=== PATIENT | male | born 1965 | race African-American/Black ===

== ENCOUNTER 2021-01-12 15:05 | Inpatient (IN) | payer OTHER ==
[~2021-01-12] VITALS: Ht 188 cm; Wt 92.5 kg
[2021-01-12 15:39] LABS: BASOPHILS % 0.5 % (0.0-2.0); EOSINOPHILS % 0.3 % (0.0-5.0); HEMATOCRIT. 39.6 % (42.0-52.0); HEMOGLOBIN. 13.3 g/dL (14.0-18.0); LYMPHOCYTES % 9.3 % (20.0-50.0); MEAN CORPUSCULAR HEMOGLOBIN 30.5 pg (28.0-32.0); MEAN CORPUSCULAR VOLUME 90.7 fL (80.0-94.0); MEAN PLATELET VOLUME 7.8 fl (7.4-10.4); MONOCYTES % 7.8 % (2.0-8.0); NEUTROPHILS % 82.1 % (40.0-76.0); PLATELET 382 x1000/uL (130-400); RED BLOOD CELL COUNT 4.36 mill/uL (4.7-6.1)
[2021-01-12 15:46] LABS: CHLORIDE 105 mEq/L (98-107)
[2021-01-12] MEDS ORDERED: AZITHROMYCIN 500 MG TABLET PO ONE (16:30)
[2021-01-12] MEDS ORDERED: SODIUM CHLORIDE 0.9% 1000ML BAG (SEPSIS BOLUS) IV ONE (17:45)
[2021-01-12] MEDS ORDERED: AZITHROMYCIN 500 MG TABLET PO NR (17:57)
[2021-01-12 18:16] LABS: BETA HYDROXYBUTYRATE 0.1 mMol/L (0.0-0.3)
[2021-01-12 18:59] LABS: CLARITY URINE TURBID (CLEAR); COLOR URINE DARK YELLOW (YELLOW); KETONES URINE TRACE (NEGATIVE); LEUKOCYTE ESTERASE URINE 1+ (NEGATIVE); NITRITE URINE NEGATIVE (NEGATIVE); OCCULT BLOOD URINE 2+ (NEGATIVE); PROTEIN URINE 2+ (NEGATIVE); SPECIFIC GRAVITY URINE 1.023 (1.005-1.030)
[2021-01-12] MEDS ORDERED: ONDANSETRON HCL 4MG/2ML INJ IV PRN (19:00)
[2021-01-12] MEDS ORDERED: IPRATROPIUM/ALBUTEROL 0.5-3(2.5)MG/3ML NEB HHN PRN (19:00)
[2021-01-12] MEDS ORDERED: ACETAMINOPHEN 325MG TABLET PO PRN (19:00)
[2021-01-12] MEDS ORDERED: LORAZEPAM 0.5MG TABLET PO PRN (19:00)
[2021-01-12] MEDS ORDERED: CLONIDINE 0.1MG TABLET PO PRN (19:00)
[2021-01-12] MEDS ORDERED: DOCUSATE SODIUM 100MG CAPSULE PO PRN (19:00)
[2021-01-12 19:14] LABS: *BARBITURATES SCREEN URINE NEGATIVE (NEGATIVE)
[2021-01-12 19:15] LABS: *AMPHETAMINES SCREEN URINE NEGATIVE (NEGATIVE); *BENZODIAZEPINES SCREEN URINE NEGATIVE (NEGATIVE); *COCAINE SCREEN URINE NEGATIVE (NEGATIVE); METHADONE URINE SCREEN NEGATIVE (NEGATIVE)
[2021-01-12 19:16] LABS: CANNABINOID URINE SCREEN PRESUMTIVE POSITIVE (NEGATIVE); OPIATES URINE SCREEN NEGATIVE (NEGATIVE); PHENCYCLIDINE URINE SCREEN PRESUMTIVE POSITIVE (NEGATIVE)
[2021-01-12] MEDS ORDERED: PIPERACILLIN/TAZ 3.375G PREMIX 50 ML IV ONE (19:30)
[2021-01-12] MEDS: VANCOMYCIN 1250MG in DEXTROSE 5% WATER 250ML IV SCH (21:10)
[2021-01-12 21:50] LABS: HEPATITIS B SURFACE ANTIGEN NEGATIVE
[2021-01-12 22:20] LABS: HEPATITIS A AB IGM NEGATIVE (NEGATIVE)
[2021-01-13] VITALS (75 sets, daily range): BP systolic 96–144; BP diastolic 46–89
[2021-01-13] MEDS ORDERED: DEXTROSE 50% WATER 50ML SYRINGE IV PRN (00:30)
[2021-01-13] MEDS ORDERED: INFLUENZA VACCINE 05/PF 0.5 ML VIAL IM ONE (01:45)
[2021-01-13] MEDS: PIPERACILLIN/TAZOBACTAM 3.375 G in DEXT 5% WATER 100 ML IV SCH ×4 (03:01→20:02)
[2021-01-13] MEDS: ACETAMINOPHEN 325MG TABLET PO PRN ×2 (04:12→17:11)
[2021-01-13 05:05] LABS: BASOPHILS % 0.3 % (0.0-2.0); EOSINOPHILS % 0.4 % (0.0-5.0); HEMATOCRIT. 38.2 % (42.0-52.0); HEMOGLOBIN. 12.9 g/dL (14.0-18.0); LYMPHOCYTES % 10.4 % (20.0-50.0); MEAN CORPUSCULAR HEMOGLOBIN 30.5 pg (28.0-32.0); MEAN CORPUSCULAR VOLUME 90.5 fL (80.0-94.0); MEAN PLATELET VOLUME 7.8 fl (7.4-10.4); MONOCYTES % 8.5 % (2.0-8.0); NEUTROPHILS % 80.4 % (40.0-76.0); PLATELET 401 x1000/uL (130-400); RED BLOOD CELL COUNT 4.22 mill/uL (4.7-6.1); RED CELL DISTRIBUTION WIDTH 14.2 % (11.6-14.6)
[2021-01-13] MEDS: BLOOD SUGAR DIAGNOSTIC STRIP TEST SCH ×4 (06:24→21:58)
[2021-01-13] MEDS: INSULIN LISPRO 100 UNITS/ML SUBCUT SCH ×4 (06:24→21:00)
[2021-01-13] MEDS: AMLODIPINE 2.5MG TABLET PO SCH (08:54)
[2021-01-13] MEDS ORDERED: ASPIRIN 81MG EC TABLET PO SCH (09:00)
[2021-01-13] MEDS: SODIUM CHLORIDE 0.9% 1,000 ML IV SCH ×2 (09:23→20:02)
[2021-01-13] MEDS ORDERED: ALBUMIN HUMAN 25GM/100ML (25%) IV NR (10:00)
[2021-01-13] MEDS: VANCOMYCIN 1250MG in DEXTROSE 5% WATER 250ML IV SCH (20:30)
[2021-01-13 21:49] LABS: INR 1.2; PROTHROMBIN TIME 12.6 sec (9.6-11.0)
[2021-01-13] MEDS: HYDROCODONE/ACETAMINOPHEN 5/325MG TABLET PO PRN (22:19)
[2021-01-13] MEDS ORDERED: NICARDIPINE 100 MG in SODIUM CHLORIDE 0.9% 60 ML IV PRN (23:00)
[2021-01-13] MEDS ORDERED: IPRA3AMP31 IH (23:27)
[2021-01-13] MEDS ORDERED: BENA40TA9 PO (23:27)
[2021-01-13] MEDS ORDERED: ZINC220C6 PO (23:27)
[2021-01-13] MEDS ORDERED: ASPI-1497 PO (23:27)
[2021-01-13] MEDS ORDERED: SPIR25TA6 MT (23:27)
[2021-01-13] MEDS ORDERED: ATOR-2 MT (23:27)
[2021-01-13] MEDS ORDERED: ASCO500C18 PO (23:27)
[2021-01-13] MEDS ORDERED: DAPA10TA MT (23:27)
[2021-01-13] MEDS ORDERED: CARV25TA47 MT (23:27)
[2021-01-13] MEDS: DEXT 5%/LACTATED RINGERS 1,000 ML IV SCH (23:50)
[2021-01-14] VITALS (14 sets, daily range): BP systolic 108–139; BP diastolic 54–69
[2021-01-14] MEDS: PIPERACILLIN/TAZOBACTAM 3.375 G in DEXT 5% WATER 100 ML IV SCH ×4 (02:49→21:59)
[2021-01-14 05:00] LABS: BASOPHILS % 0.5 % (0.0-2.0); HEMATOCRIT. 37.3 % (42.0-52.0); HEMOGLOBIN. 12.4 g/dL (14.0-18.0); LYMPHOCYTES % 10.7 % (20.0-50.0); MEAN CORPUSCULAR HEMOGLOBIN 30.7 pg (28.0-32.0); MEAN CORPUSCULAR VOLUME 92.5 fL (80.0-94.0); MEAN PLATELET VOLUME 7.8 fl (7.4-10.4); MONOCYTES % 9.2 % (2.0-8.0); NEUTROPHILS % 78.6 % (40.0-76.0); PLATELET 364 x1000/uL (130-400); RED BLOOD CELL COUNT 4.03 mill/uL (4.7-6.1)
[2021-01-14 05:02] LABS: CHLORIDE 109 mEq/L (98-107)
[2021-01-14 05:11] LABS: PHOSPHORUS 4.5 mg/dL (2.5-4.9)
[2021-01-14 05:12] LABS: LDL CHOLESTEROL 35 mg/dL (5-100)
[2021-01-14 05:13] LABS: CREATINE KINASE 974 IU/L (39-308)
[2021-01-14 05:14] LABS: HDL CHOLESTEROL 16 mg/dL (40-59)
[2021-01-14] MEDS: BLOOD SUGAR DIAGNOSTIC STRIP TEST SCH ×4 (06:53→21:00)
[2021-01-14] MEDS: INSULIN LISPRO 100 UNITS/ML SUBCUT SCH ×4 (06:53→21:00)
[2021-01-14] MEDS: LEVETIRACETAM 500MG PREMIX 100 ML IV SCH ×3 (08:44→22:36)
[2021-01-14] MEDS: AMLODIPINE 2.5MG TABLET PO SCH ×2 (08:44→16:40)
[2021-01-14] MEDS: DEXT 5%/LACTATED RINGERS 1,000 ML IV SCH (15:40)
[2021-01-14] MEDS: HYDROCODONE/ACETAMINOPHEN 5/325MG TABLET PO PRN (19:53)
[2021-01-14] MEDS: VANCOMYCIN 1250MG in DEXTROSE 5% WATER 250ML IV SCH (21:59)
[2021-01-15 00:15] VITALS: BP 106/55
[2021-01-15 04:00] VITALS: BP 152/70
[2021-01-15] MEDS: BLOOD SUGAR DIAGNOSTIC STRIP TEST SCH ×4 (05:13→21:10)
[2021-01-15] MEDS: INSULIN LISPRO 100 UNITS/ML SUBCUT SCH ×4 (05:13→21:00)
[2021-01-15 07:33] LABS: BASOPHILS % 0.6 % (0.0-2.0); EOSINOPHILS % 1.2 % (0.0-5.0); HEMATOCRIT. 36.2 % (42.0-52.0); HEMOGLOBIN. 12.1 g/dL (14.0-18.0); LYMPHOCYTES % 12.8 % (20.0-50.0); MEAN CORPUSCULAR HEMOGLOBIN 30.3 pg (28.0-32.0); MEAN CORPUSCULAR VOLUME 90.8 fL (80.0-94.0); MEAN PLATELET VOLUME 7.7 fl (7.4-10.4); MONOCYTES % 9.4 % (2.0-8.0); PLATELET 373 x1000/uL (130-400); RED BLOOD CELL COUNT 3.99 mill/uL (4.7-6.1); RED CELL DISTRIBUTION WIDTH 13.9 % (11.6-14.6)
[2021-01-15 07:42] LABS: PHOSPHORUS 4.2 mg/dL (2.5-4.9)
[2021-01-15 08:00] VITALS: BP 150/84
[2021-01-15] MEDS: LEVETIRACETAM 500MG PREMIX 100 ML IV SCH ×2 (08:25→21:10)
[2021-01-15] MEDS: AMLODIPINE 2.5MG TABLET PO SCH ×2 (08:26→17:14)
[2021-01-15] MEDS: DEXT 5%/LACTATED RINGERS 1,000 ML IV SCH (08:27)
[2021-01-15] MEDS ORDERED: CARVEDILOL 6.25 MG TABLET PO NR (11:15)
[2021-01-15] MEDS: HYDROCODONE/ACETAMINOPHEN 5/325MG TABLET PO PRN ×2 (11:59→17:14)
[2021-01-15 12:00] VITALS: BP 138/76
[2021-01-15 16:00] VITALS: BP 129/69
[2021-01-15] MEDS ORDERED: VANCOMYCIN 1 G PREMIX 200 ML IV SCH (17:00)
[2021-01-15 20:00] VITALS: BP 133/82
[2021-01-15] MEDS: CARVEDILOL 6.25 MG TABLET PO SCH (21:09)
[2021-01-15] MEDS: CEFAZOLIN 2,000 MG in DEXT 5% WATER 100 ML IV SCH (22:16)
[2021-01-16] VITALS: BP 124/74
[2021-01-16] MEDS: DEXT 5%/LACTATED RINGERS 1,000 ML IV SCH ×2 (00:36→18:38)
[2021-01-16 04:00] VITALS: BP 155/78
[2021-01-16] MEDS: BLOOD SUGAR DIAGNOSTIC STRIP TEST SCH ×4 (05:28→20:40)
[2021-01-16] MEDS: CEFAZOLIN 2,000 MG in DEXT 5% WATER 100 ML IV SCH ×3 (05:28→22:19)
[2021-01-16] MEDS: INSULIN LISPRO 100 UNITS/ML SUBCUT SCH ×4 (05:43→20:40)
[2021-01-16 07:14] LABS: BASOPHILS % 0.3 % (0.0-2.0); EOSINOPHILS % 1.4 % (0.0-5.0); HEMATOCRIT. 42.1 % (42.0-52.0); HEMOGLOBIN. 13.7 g/dL (14.0-18.0); LYMPHOCYTES % 16.1 % (20.0-50.0); MEAN CORPUSCULAR HEMOGLOBIN 30.5 pg (28.0-32.0); MEAN CORPUSCULAR VOLUME 93.2 fL (80.0-94.0); MEAN PLATELET VOLUME 7.5 fl (7.4-10.4); MONOCYTES % 11.7 % (2.0-8.0); NEUTROPHILS % 70.5 % (40.0-76.0); PLATELET 348 x1000/uL (130-400); RED BLOOD CELL COUNT 4.51 mill/uL (4.7-6.1); RED CELL DISTRIBUTION WIDTH 14.4 % (11.6-14.6)
[2021-01-16 07:26] LABS: CHLORIDE 111 mEq/L (98-107)
[2021-01-16 08:00] VITALS: BP 116/76
[2021-01-16] MEDS: LEVETIRACETAM 500MG PREMIX 100 ML IV SCH ×2 (09:32→20:40)
[2021-01-16] MEDS: CARVEDILOL 6.25 MG TABLET PO SCH ×2 (09:33→20:40)
[2021-01-16] MEDS: AMLODIPINE 2.5MG TABLET PO SCH ×2 (09:33→17:36)
[2021-01-16] MEDS: HYDROCODONE/ACETAMINOPHEN 5/325MG TABLET PO PRN ×2 (09:43→13:52)
[2021-01-16 12:00] VITALS: BP 128/65
[2021-01-16 16:00] VITALS: BP 123/70
[2021-01-16 20:00] VITALS: BP 130/75
[2021-01-17] VITALS: BP 122/81
[2021-01-17 04:00] VITALS: BP 125/76
[2021-01-17] MEDS: CEFAZOLIN 2,000 MG in DEXT 5% WATER 100 ML IV SCH ×3 (05:27→22:24)
[2021-01-17 06:06] LABS: CHLORIDE 111 mEq/L (98-107)
[2021-01-17 06:12] LABS: BASOPHILS % 0.4 % (0.0-2.0); EOSINOPHILS % 1.3 % (0.0-5.0); HEMATOCRIT. 40.1 % (42.0-52.0); HEMOGLOBIN. 13.6 g/dL (14.0-18.0); LYMPHOCYTES % 16.8 % (20.0-50.0); MEAN CORPUSCULAR HEMOGLOBIN 31.3 pg (28.0-32.0); MEAN CORPUSCULAR VOLUME 92.6 fL (80.0-94.0); MEAN PLATELET VOLUME 7.7 fl (7.4-10.4); MONOCYTES % 8.6 % (2.0-8.0); NEUTROPHILS % 72.9 % (40.0-76.0); PLATELET 310 x1000/uL (130-400); RED BLOOD CELL COUNT 4.33 mill/uL (4.7-6.1); RED CELL DISTRIBUTION WIDTH 14.1 % (11.6-14.6)
[2021-01-17 06:13] LABS: PHOSPHORUS 4.2 mg/dL (2.5-4.9)
[2021-01-17] MEDS: BLOOD SUGAR DIAGNOSTIC STRIP TEST SCH ×4 (06:15→20:20)
[2021-01-17] MEDS: INSULIN LISPRO 100 UNITS/ML SUBCUT SCH ×4 (06:15→20:20)
[2021-01-17 08:27] VITALS: BP 116/59
[2021-01-17] MEDS: LEVETIRACETAM 500MG PREMIX 100 ML IV SCH ×2 (08:37→20:24)
[2021-01-17] MEDS: AMLODIPINE 2.5MG TABLET PO SCH ×2 (08:37→18:14)
[2021-01-17] MEDS: CARVEDILOL 6.25 MG TABLET PO SCH ×2 (08:37→20:25)
[2021-01-17 12:00] VITALS: BP 137/63
[2021-01-17] MEDS: DEXT 5%/LACTATED RINGERS 1,000 ML IV SCH ×2 (12:11→22:50)
[2021-01-17 13:07] LABS: ANTI-THROMBIN ACTIVITY 107 % (75-135); DRVVT LA 38.5 sec (0.0-47.0); PROTEIN C FUNCTIONAL 125 % (73-180)
[2021-01-17 15:10] LABS: LUPUS ANTICOAG INTERPRETATION Comment: (.)
[2021-01-17 16:00] VITALS: BP 115/72
[2021-01-17] MEDS: CLOPIDOGREL 75MG TABLET PO SCH (18:14)
[2021-01-17] MEDS: ASPIRIN 81MG EC TABLET PO SCH (18:14)
[2021-01-17 20:00] VITALS: BP 156/77
[2021-01-17] MEDS: ATORVASTATIN CALCIUM 40MG TABLET PO SCH (20:24)
[2021-01-17] MEDS: OXYCODONE HCL/ACETAMINOPHEN 5/325MG TABLET PO PRN (22:25)
[2021-01-18] VITALS: BP 135/72
[2021-01-18] MEDS: OXYCODONE HCL/ACETAMINOPHEN 5/325MG TABLET PO PRN ×3 (02:41→22:38)
[2021-01-18 04:00] VITALS: BP 156/99
[2021-01-18 04:09] LABS: ANTI-CARDIOLIPIN AB IGA < 9 APL U/mL (0-11); ANTI-CARDIOLIPIN AB IGG 22 GPL U/mL (0-14); ANTI-CARDIOLIPIN AB IGM 18 MPL U/mL (0-12)
[2021-01-18] MEDS: CEFAZOLIN 2,000 MG in DEXT 5% WATER 100 ML IV SCH ×3 (05:12→22:40)
[2021-01-18] MEDS: BLOOD SUGAR DIAGNOSTIC STRIP TEST SCH ×4 (05:52→21:32)
[2021-01-18] MEDS: INSULIN LISPRO 100 UNITS/ML SUBCUT SCH ×4 (06:37→21:00)
[2021-01-18 07:12] LABS: BASOPHILS % 0.5 % (0.0-2.0); EOSINOPHILS % 1.3 % (0.0-5.0); HEMATOCRIT. 35.2 % (42.0-52.0); HEMOGLOBIN. 12.2 g/dL (14.0-18.0); LYMPHOCYTES % 15.8 % (20.0-50.0); MEAN CORPUSCULAR HEMOGLOBIN 31.8 pg (28.0-32.0); MEAN CORPUSCULAR VOLUME 91.9 fL (80.0-94.0); MEAN PLATELET VOLUME 7.4 fl (7.4-10.4); MONOCYTES % 6.9 % (2.0-8.0); NEUTROPHILS % 75.5 % (40.0-76.0); PLATELET 304 x1000/uL (130-400); RED BLOOD CELL COUNT 3.83 mill/uL (4.7-6.1); RED CELL DISTRIBUTION WIDTH 13.4 % (11.6-14.6)
[2021-01-18 07:56] LABS: CHLORIDE 109 mEq/L (98-107)
[2021-01-18 08:00] VITALS: BP 134/72
[2021-01-18 08:05] LABS: PHOSPHORUS 4.2 mg/dL (2.5-4.9)
[2021-01-18] MEDS: LEVETIRACETAM 500MG PREMIX 100 ML IV SCH ×2 (09:00→21:35)
[2021-01-18] MEDS: CLOPIDOGREL 75MG TABLET PO SCH (09:00)
[2021-01-18] MEDS: ASPIRIN 81MG EC TABLET PO SCH (09:00)
[2021-01-18] MEDS: CARVEDILOL 6.25 MG TABLET PO SCH ×2 (09:01→21:37)
[2021-01-18] MEDS: AMLODIPINE 2.5MG TABLET PO SCH ×2 (09:01→16:57)
[2021-01-18] MEDS ORDERED: MAGNESIUM 2 G PREMIX 50 ML IV NR (09:30)
[2021-01-18] MEDS: NYSTATIN 100,000 UNITS/ML 5ML UDC SSW SCH ×2 (11:28→18:02)
[2021-01-18 12:00] VITALS: BP 104/76
[2021-01-18] MEDS: MORPHINE SULFATE 4 MG/ML CPJ (NOT FOR IM USE) IV PRN (15:06)
[2021-01-18 16:00] VITALS: BP 130/68
[2021-01-18 20:00] VITALS: BP 142/73
[2021-01-18] MEDS: DEXT 5%/LACTATED RINGERS 1,000 ML IV SCH (21:35)
[2021-01-18] MEDS: ATORVASTATIN CALCIUM 40MG TABLET PO SCH (22:07)
[2021-01-19] VITALS: BP 123/83
[2021-01-19] MEDS: NYSTATIN 100,000 UNITS/ML 5ML UDC SSW SCH ×6 (02:01→23:32)
[2021-01-19] MEDS: MORPHINE SULFATE 4 MG/ML CPJ (NOT FOR IM USE) IV PRN ×4 (02:02→20:01)
[2021-01-19 04:00] VITALS: BP 127/93
[2021-01-19] MEDS: CEFAZOLIN 2,000 MG in DEXT 5% WATER 100 ML IV SCH ×3 (06:07→21:53)
[2021-01-19] MEDS: INSULIN LISPRO 100 UNITS/ML SUBCUT SCH ×4 (06:23→20:27)
[2021-01-19] MEDS: BLOOD SUGAR DIAGNOSTIC STRIP TEST SCH ×4 (06:23→20:27)
[2021-01-19 08:00] VITALS: BP 132/80
[2021-01-19 08:03] LABS: BASOPHILS % 0.7 % (0.0-2.0); EOSINOPHILS % 1.4 % (0.0-5.0); HEMATOCRIT. 38.9 % (42.0-52.0); HEMOGLOBIN. 12.9 g/dL (14.0-18.0); LYMPHOCYTES % 18.2 % (20.0-50.0); MEAN CORPUSCULAR HEMOGLOBIN 30.5 pg (28.0-32.0); MEAN CORPUSCULAR VOLUME 92.2 fL (80.0-94.0); MEAN PLATELET VOLUME 7.6 fl (7.4-10.4); MONOCYTES % 8.5 % (2.0-8.0); NEUTROPHILS % 71.2 % (40.0-76.0); PLATELET 309 x1000/uL (130-400); RED BLOOD CELL COUNT 4.22 mill/uL (4.7-6.1); RED CELL DISTRIBUTION WIDTH 13.8 % (11.6-14.6)
[2021-01-19 08:13] LABS: CHLORIDE 109 mEq/L (98-107)
[2021-01-19] MEDS: LEVETIRACETAM 500MG PREMIX 100 ML IV SCH ×2 (09:22→20:11)
[2021-01-19] MEDS: ASPIRIN 81MG EC TABLET PO SCH (09:22)
[2021-01-19] MEDS: CLOPIDOGREL 75MG TABLET PO SCH (09:23)
[2021-01-19] MEDS: CARVEDILOL 6.25 MG TABLET PO SCH ×2 (09:23→20:12)
[2021-01-19] MEDS: AMLODIPINE 2.5MG TABLET PO SCH ×2 (09:23→17:44)
[2021-01-19] MEDS: FUROSEMIDE 40MG TABLET PO SCH (10:33)
[2021-01-19] MEDS ORDERED: COR6 PO (11:52)
[2021-01-19] MEDS ORDERED: FURO40TA5 PO (11:52)
[2021-01-19] MEDS ORDERED: CLOP75TA15 PO (11:52)
[2021-01-19] MEDS ORDERED: AMLO2.5T45 PO (11:52)
[2021-01-19] MEDS ORDERED: CEFA2PIG IV (11:55)
[2021-01-19 12:00] VITALS: BP 132/78
[2021-01-19] MEDS: OXYCODONE HCL/ACETAMINOPHEN 5/325MG TABLET PO PRN (12:27)
[2021-01-19] MEDS: DEXT 5%/LACTATED RINGERS 1,000 ML IV SCH ×2 (12:28→20:12)
[2021-01-19 13:07] LABS: ANTI-DNA DOUBLE STRANDED QUANT < 1 IU/mL (0-9)
[2021-01-19 16:00] VITALS: BP 141/79
[2021-01-19 20:00] VITALS: BP 130/78
[2021-01-19] MEDS: ATORVASTATIN CALCIUM 40MG TABLET PO SCH (20:11)
[2021-01-20] VITALS: BP 131/85
[2021-01-20] MEDS: MORPHINE SULFATE 4 MG/ML CPJ (NOT FOR IM USE) IV PRN ×3 (00:11→12:17)
[2021-01-20 04:00] VITALS: BP 150/99
[2021-01-20] MEDS: NYSTATIN 100,000 UNITS/ML 5ML UDC SSW SCH ×2 (05:07→12:16)
[2021-01-20] MEDS: CEFAZOLIN 2,000 MG in DEXT 5% WATER 100 ML IV SCH ×2 (05:07→14:48)
[2021-01-20] MEDS: BLOOD SUGAR DIAGNOSTIC STRIP TEST SCH ×2 (06:03→11:46)
[2021-01-20] MEDS: INSULIN LISPRO 100 UNITS/ML SUBCUT SCH ×2 (06:26→11:48)
[2021-01-20 07:07] LABS: CHLORIDE 112 mEq/L (98-107)
[2021-01-20 07:09] LABS: BASOPHILS % 0.8 % (0.0-2.0); EOSINOPHILS % 2.1 % (0.0-5.0); HEMATOCRIT. 35.1 % (42.0-52.0); HEMOGLOBIN. 11.8 g/dL (14.0-18.0); LYMPHOCYTES % 20.9 % (20.0-50.0); MEAN CORPUSCULAR HEMOGLOBIN 30.9 pg (28.0-32.0); MEAN CORPUSCULAR VOLUME 92.3 fL (80.0-94.0); MEAN PLATELET VOLUME 7.5 fl (7.4-10.4); NEUTROPHILS % 68.2 % (40.0-76.0); PLATELET 270 x1000/uL (130-400); RED CELL DISTRIBUTION WIDTH 13.7 % (11.6-14.6)
[2021-01-20 08:00] VITALS: BP 151/83
[2021-01-20] MEDS: LEVETIRACETAM 500MG PREMIX 100 ML IV SCH (08:52)
[2021-01-20] MEDS: CARVEDILOL 6.25 MG TABLET PO SCH (08:53)
[2021-01-20] MEDS: FUROSEMIDE 40MG TABLET PO SCH (08:53)
[2021-01-20] MEDS: AMLODIPINE 2.5MG TABLET PO SCH (08:53)
[2021-01-20] MEDS: ASPIRIN 81MG EC TABLET PO SCH (08:53)
[2021-01-20] MEDS: CLOPIDOGREL 75MG TABLET PO SCH (08:53)
[2021-01-20 12:00] VITALS: BP 128/79
[2021-01-20 15:52] VITALS: BP 158/78
[2021-01-20 16:00] VITALS: BP 140/89
[2021-01-21 13:06] LABS: ANA IFA Negative (.)
[2021-01-21 19:06] LABS: ANTI-MYELOPEROXIDASE AB < 9.0 U/mL (0.0-9.0); ANTI-PROTEINASE 3 ABS < 3.5 U/mL (0.0-3.5)
[2021-01-22 13:11] LABS: DRVVT LA 61.3 sec (0.0-47.0); PTT-LA 38.1 sec (0.0-51.9)
[2021-01-22 13:11] LABS: ALDOLASE 6.4 U/L (3.3-10.3)
[2021-01-23 09:11] LABS: DRVVT LA CONFIRMATION 1.2 ratio (0.8-1.2); DRVVT MIX LA 45.4 sec (0.0-40.4); LUPUS ANTICOAG INTERPRETATION Comment: (.)
[2021-01-23 13:11] LABS: ATYPICAL P-ANCA <1:20 titer (Neg:<1:20); CYTOPLASMIC C-ANCA <1:20 titer (Neg:<1:20); PERINUCLEAR P-ANCA <1:20 titer (Neg:<1:20)
[2021-01-23 14:24] LABS: IMMUNE COMPLEX C1Q BINDING 9.4 ug Eq/mL (.)
== END 2021-01-20 17:30 | DRG 720 ==
LOC: ER 15:05 → MICUSO 17:42 → EDBEDREQTM 17:49 → EDBEDREQ 17:49 → CANRESERV 21:45 → ENRESERV 21:45 → MICUSO 01-13 04:00 → 5WST 01-14 12:49
PROVIDERS: ADMIT Internal Medicine; ATTEND Internal Medicine
PROC: 02HV33Z Insertion of Infusion Device into Superior Vena Cava, Percutaneous Approach (ICD-10-PCS; principal; 2021-01-19)
PROC: B518ZZA Fluoroscopy of Superior Vena Cava, Guidance (ICD-10-PCS; 2021-01-19)
PROC: B548ZZA Ultrasonography of Superior Vena Cava, Guidance (ICD-10-PCS; 2021-01-19)
DX: A41.01 Sepsis due to Methicillin susceptible Staphylococcus aureus (principal); I61.9 Nontraumatic intracerebral hemorrhage, unspecified; I21.4 Non-ST elevation (NSTEMI) myocardial infarction; I63.511 Cerebral infarction due to unspecified occlusion or stenosis of right middle cerebral artery; E43 Unspecified severe protein-calorie malnutrition; J96.01 Acute respiratory failure with hypoxia; G93.40 Encephalopathy, unspecified; I74.9 Embolism and thrombosis of unspecified artery; J68.0 Bronchitis and pneumonitis due to chemicals, gases, fumes and vapors; T40.991A Poisoning by other psychodysleptics [hallucinogens], accidental (unintentional), initial encounter; L89.153 Pressure ulcer of sacral region, stage 3; I13.0 Hypertensive heart and chronic kidney disease with heart failure and stage 1 through stage 4 chronic kidney disease, or unspecified chronic kidney disease; R13.10 Dysphagia, unspecified; N17.9 Acute kidney failure, unspecified; E11.22 Type 2 diabetes mellitus with diabetic chronic kidney disease; D35.00 Benign neoplasm of unspecified adrenal gland; N18.9 Chronic kidney disease, unspecified; E66.9 Obesity, unspecified; E78.00 Pure hypercholesterolemia, unspecified; E78.5 Hyperlipidemia, unspecified; E87.5 Hyperkalemia; F16.129 Hallucinogen abuse with intoxication, unspecified; F17.200 Nicotine dependence, unspecified, uncomplicated; G47.33 Obstructive sleep apnea (adult) (pediatric); I44.7 Left bundle-branch block, unspecified; N39.0 Urinary tract infection, site not specified; R41.4 Neurologic neglect syndrome; R47.01 Aphasia; F41.9 Anxiety disorder, unspecified; H53.8 Other visual disturbances; R16.0 Hepatomegaly, not elsewhere classified; R74.01 Elevation of levels of liver transaminase levels; R70.0 Elevated erythrocyte sedimentation rate; F19.90 Other psychoactive substance use, unspecified, uncomplicated; F10.10 Alcohol abuse, uncomplicated; H53.462 Homonymous bilateral field defects, left side; I25.10 Atherosclerotic heart disease of native coronary artery without angina pectoris; Z20.822 Contact with and (suspected) exposure to COVID-19; M62.82 Rhabdomyolysis; R31.9 Hematuria, unspecified; G81.94 Hemiplegia, unspecified affecting left nondominant side; B37.0 Candidal stomatitis; R29.810 Facial weakness; Z79.84 Long term (current) use of oral hypoglycemic drugs; Z82.49 Family history of ischemic heart disease and other diseases of the circulatory system; Z83.3 Family history of diabetes mellitus; Z79.82 Long term (current) use of aspirin; Z79.899 Other long term (current) drug therapy; Z68.26 Body mass index [BMI] 26.0-26.9, adult; I69.320 Aphasia following cerebral infarction; Z56.0 Unemployment, unspecified; Y92.89 Other specified places as the place of occurrence of the external cause; Z91.81 History of falling; D64.9 Anemia, unspecified; I50.41 Acute combined systolic (congestive) and diastolic (congestive) heart failure
CPT/HCPCS: 36415; 36573; 70486; 70544; 70553; 71045; 71250; 73030; 73080; 74176; 76700; 80048; 80053; 80061; 80202; 80305; 80320; 81003; 81400; 81403; 81407; 81479; 82010; 82040; 82085; 82140; 82164; 82550; 82595; 82941; 82962; 83036; 83520; 83605; 83735; 83880; 84100; 84134; 84145; 84443; 84484; 84550; 85025; 85300; 85303; 85306; 85379; 85613; 85651; 85732; 86140; 86147; 86160; 86225; 86256; 86332; 86705; 86709; 86803; 87077; 87186; 87340; 92523; 92610; 93005; 93306; 93880; 97112; 97162; 97166; 97530; 99285; C1725; J0690; J1815; J1953; J2270; J2543; J3370; J3475; J3490; J7030; J7040; J7060; J7121; P9047; U0003; A4315; G0480